=== PATIENT | female | born 1980 | race Caucasian/White ===

== ENCOUNTER 2020-01-07 03:23 | Emergency (ER) | payer OTHER, SELFPAY ==
[2020-01-07 03:12] VITALS: BP 93/68; PULSE 70; RESP 18; TEMP 36.6; O2SAT 98
--- NOTE | 2020-01-07 05:02 | ED.GENADULT ---
HPI - General Adult General Chief complaint: Unspecified <Keily Harvey MD - Last Filed: 01/07/20 22:15> Stated complaint: FEVER/CHILLS/SOB <Keily Harvey MD - Last Filed: 01/07/20 22:15> Time Seen by Provider: 01/07/20 04:46 <Keily Harvey MD - Last Filed: 01/07/20 22:15> Source: patient <Keily Harvey MD - Last Filed: 01/07/20 22:15> Mode of arrival: EMS <Keily Harvey MD - Last Filed: 01/07/20 22:15> Limitations: other (patient is refusing to cooperative with questioning) <Keily Harvey MD - Last Filed: 01/07/20 22:15> History of Present Illness HPI narrative: This patient is 39 yo female with history substance abuse who presents to ER for evaluation of not feeling well for detox and needing help to find a place to stay. EMS states they were called for patient being feverish and sob. On EMS arrival patient denies sob, pain, or any symptoms other than she does not feel well. Patient just states she is trying to sleep. She also ask if we can help her find a place to stay. <Keily Harvey MD - Last Filed: 01/07/20 22:15> Related Data Allergies/adverse reactions: Allergies Allergy/AdvReac Type Severity Reaction Status Date / Time No Known Allergies Allergy Verified 01/07/20 06:06 <Keily Harvey MD - Last Filed: 01/07/20 22:15> Review of Systems Review of Systems: Narrative: patient is not cooperative with all questioning <Keily Harvey MD - Last Filed: 01/07/20 22:15> ROS unobtainable: Yes other <Keily Harvey MD - Last Filed: 01/07/20 22:15> Constitutional: Constitutional: Denies chills and Denies fever(s) <Keily Harvey MD - Last Filed: 01/07/20 22:15> Cardiovascular: Cardiovascular: Denies chest pain <Keily Harvey MD - Last Filed: 01/07/20 22:15> Respiratory: Respiratory: Denies cough and Denies dyspnea <Keily Harvey MD - Last Filed: 01/07/20 22:15> Gastrointestinal: Gastrointestinal: Denies abdominal pain <Keily Harvey MD - Last Filed: 01/07/20 22:15> Musculoskeletal: Musculoskeletal: Denies myalgias <Keily Harvye MD - Last Filed: 01/07/20 22:15> [facility] Past Medical History Medical History: Medical History (Updated 01/07/20 @ 11:15 by Liz Castaneda MD) Patient denies significant medical history <Keily Harvey MD - Last Filed: 01/07/20 22:15> Social History Social History: Social History (Updated 01/07/20 @ 05:03 by Keily Harvey MD) Substance use type: amphetamines Gender identity (if verbalized by the patient): Female <Keily Harvey MD - Last Filed: 01/07/20 22:15> Comments patient states she has had a surgery years ago but she refuses to say what surgery she has had <Keily Harvey MD - Last Filed: 01/07/20 22:15> Exam Const: General: alert <Keily Harvey MD - Last Filed: 01/07/20 22:15> Orientation/consciousness: patient oriented x3 <Keily Harvey MD - Last Filed: 01/07/20 22:15> HENMT: Head: normocephalic and atraumatic <Keily Harvey MD - Last Filed: 01/07/20 22:15> Mouth: Yes moist mucous membranes <Keily Harvey MD - Last Filed: 01/07/20 22:15> Eyes: Pupils: Equal, round and reactive pupils present <Keily Harvey MD - Last Filed: 01/07/20 22:15> Chest: Chest palpation & inspection: normal inspection of the chest <Keily Harvey MD - Last Filed: 01/07/20 22:15> Resp: Effort & Inspection: normal respiratory effort <Keily Harvey MD - Last Filed: 01/07/20 22:15> Auscultation: clear to auscultation bilaterally <Keily Harvey MD - Last Filed: 01/07/20 22:15> Cardio: Rate: regular rate <Keily Harvey MD - Last Filed: 01/07/20 22:15> Rhythm: regular rhythm <Keily Harvey MD - Last Filed: 01/07/20 22:15> Heart sounds: no murmurs <Keily Harvey MD - Last Filed: 01/07/20 22:15> GI: GI Palp: Yes Soft to palpation, No Tenderness to palpation present (GI), No Guarding d
[2020-01-07 05:23] LABS: Basophils Absolute Auto 0.1 K/mm3 (0.0-0.1); Basophils Percent Auto 0.7 % (0.2-1.2); Eosinophils Absolute Auto 0.3 K/mm3 (0-0.3); Eosinophils Percent Auto 2.7 % (0-4.4); Hematocrit 39.6 % (37.0-47.0); Hemoglobin 12.2 g/dL (12.0-15.0); Immature Granulocyte Absolute 0.02 K/mm3 (0.00-0.031); Immature Granulocyte Percent A 0.2 % (0-0.5); Mean Corpuscular HGB Conc 30.8 g/dl (32-36); Mean Corpuscular Hemoglobin 26.9 pg (26-34); Mean Corpuscular Volume 87.4 fl (80-100); Mean Platelet Volume 10.2 fl (7.4-10.4); Monocytes Absolute Auto 0.6 K/mm3 (0.1-0.6); Monocytes Percent Auto 6.4 % (2.6-8.5); Neutrophils Absolute Auto 4.8 K/mm3 (1.3-6.7); Platelet Count Result 246 k/mm3 (150-375); Red Blood Count 4.53 M/mm3 (4.2-5.4); Red Cell Distribution Width 16.5 % (11.5-14.5); White Blood Count 9.2 K/mm3 (4.5-10.0)
[2020-01-07 05:35] LABS: Alanine Aminotransferase 27 U/L (4-35); Albumin Level 4.3 g/dL (3.5-5.1); Alkaline Phosphatase 78 U/L (38-126); Aspartate Amino Transferase 21 U/L (14-36); Bilirubin,Total 0.3 mg/dL (0.2-1.3); Blood Urea Nitrogen 9 mg/dL (7-17); Calcium 9.1 mg/dL (8.4-10.2); Carbon Dioxide 28 mmol/L (22-30); Chloride 105 mmol/L (98-107); Estimated Glomerular Filt Rate > 60; Glucose 92 mg/dL (65-105); Potassium 3.8 mmol/L (3.4-5.0); Sodium 139 mmol/L (137-145)
[2020-01-07 06:07] VITALS: BP 96/70; PULSE 68; RESP 18; O2SAT 99
--- NOTE | 2020-01-07 06:23 | PC.NURSE ---
Pt up to restroom. Pt unable to provide urine.
[2020-01-07 06:37] VITALS: BP 100/77; PULSE 82; RESP 18; O2SAT 99
--- NOTE | 2020-01-07 06:58 | PC.NURSE ---
Pt hadn't left room yet. Upon checking on pt, pt states I'm homeless and I have no where to go . Pt given list of resources for shelters. At that time pt states Im suicidal, I dont want to leave. I have no where to go . control system manager made aware.
[2020-01-07 07:17] VITALS: BP 122/68; PULSE 78; RESP 18; O2SAT 100
--- NOTE | 2020-01-07 07:18 | PC.NURSE ---
ASSUMED PT CARE FROM LUCINA STEPHEN AT THIS TIME. AT BEDSIDE PT C/O SI DENIES PLAN OR HI. WHEN ASKED WHY SHE IS SUICIDAL SHE STATES THAT SHE HAS BEEN HOMELESS AND LIVING OUT OF A CAR FOR THE LAST YEAR. WHEN ASKED ABOUT HX OF PSYCHIATRIC DIAGNOSES, PT STATES THAT SHE HAS BEEN DIAGNOSED WITH MENTAL ILLNESS. PT MOVED TO ROOM 15, ERP GELDMACHER AWARE OF PATIENT'S STATEMENTS, PT CHANGED INTO PAPER SCRUBS, MOVED TO ROOM 15, ALL BELONGINGS PUT ON BELONGINGS SHEET AND REMOVED FROM PT. SHAWN Brewster AT BEDSIDE WITH PT IN DIRECT SITE. PT RESTING COMFORTABLY, NO FURTHER COMPLAINTS.
[2020-01-07 07:38] LABS: Ethanol < 10 mg/dL (<10)
--- NOTE | 2020-01-07 07:40 | PC.NURSE ---
Called lab to add on Ethanol and TSH.
[2020-01-07 07:46] LABS: Barbiturate Screen Urine Negative (Negative); Benzodiazepines Screen Urine Negative (Negative); Cannabinoid Screen Urine Positive (Negative); Cocaine Screen Urine Negative (Negative); Methadone Screen Urine Negative (Negative); Opiate Screen Urine Negative (Negative); Phencyclidine Screen Urine Negative (Negative)
[2020-01-07 08:01] LABS: Amphetamine Screen Urine Positive (Negative)
--- NOTE | 2020-01-07 08:34 | PC.NURSE ---
PT MEDICALLY CLEARED BY ADIN MCBRIDE. CRISIS NOTIFIED AT THIS TIME, STATES THAT SHE WILL SEND SOMEONE OUT TO EVALUATE PT SHORTLY.
--- NOTE | 2020-01-07 10:34 | PC.NURSE ---
Addendum entered by Kit Celis RN 01/07/20 10:35: SITTER AT BEDSIDE WITH PATIENT IN DIRECT SIGHT. Original Note: EVLEINA FROM CRISIS HAS ASSESSED PT AT THIS TIME, SHE STATES THAT SHE IS GOING TO WORK ON A SAFETY CONTRACT WITH PT AND THAT SHE IS GOING TO BE OKAY TO BE DISCHARGED. ERP REED AWARE, AWAITING D/C INSTRUCTIONS.
== END 2020-01-07 11:42 | disposition home or self-care (01) ==
PROVIDERS: General Practice; Emergency Provider Emergency Medicine
DX: F15.10 Other stimulant abuse, uncomplicated (principal); R45.851 Suicidal ideations
CPT/HCPCS: 36415; 51701; 80053; 80307; 81025; 84443; 85025; 99284